=== PATIENT | female | born 1990 | race Hispanic/Latino ===

== ENCOUNTER 2018-07-27 14:09 | Observation (INO) | payer OTHER ==
[~2018-07-27] VITALS: Ht 162.6 cm; Wt 111.1 kg
[~2018-07-27 14:09] MED LIST: BIRTH CONTROL PO; LOESTRIN1 EAC1 PO
--- NOTE | 2018-07-27 14:17 | NUR ---
PATIENT ANXIOUS, SCREAMING AND CRYING,THRASHING IN BED. REQUESTING PAIN MEDCATION. NOTIFIED DR OLIVO. NO SIGNS OF ACUTE DISTRESS NOTED AT THIS TIME.
--- NOTE | 2018-07-27 14:19 | NUR ---
NOTIFIED DR OLIVO PATIENT VOMMITED APPROX 200ML YELLOW EMESIS. VERBAL ORDER: ZOFRAN 8MG IV ONCE
[2018-07-27] MEDS ORDERED: ONDANSETRON HCL INJ 2MG/ML 2ML 2 MG/ML VIAL ONE (14:22)
[2018-07-27] MEDS ORDERED: KETOROLAC TROMETHAMINE 30 MG/ML VIAL IV STA (14:30)
--- NOTE | 2018-07-27 14:32 | NUR ---
NOTIFIED DR OLIVO PATIENT REPORTS ALLERGY TO MOTRIN. D/C TORADOL ORDER. VERBAL ORDER: MORPHINE 4MG IV ONCE.
[2018-07-27] MEDS ORDERED: KETOROLAC TROMETHAMINE 30 MG/ML VIAL ONE (14:33)
[2018-07-27] MEDS ORDERED: SODIUM CHLORIDE 0.9% 1000ML 1,000 ML ONE (14:33)
[2018-07-27] MEDS ORDERED: MORPHINE SULFATE INJ 4 MG/ML INJ 1ML ONE (14:37)
[2018-07-27] MEDS ORDERED: SODIUM CHLORIDE 0.9% 1000ML 1,000 ML IV SCH (14:45)
[2018-07-27] MEDS ORDERED: MORPHINE SULFATE INJ 4 MG/ML INJ 1ML IV ONE (14:45)
[2018-07-27] MEDS ORDERED: ONDANSETRON HCL INJ 2MG/ML 2ML 2 MG/ML VIAL IV ONE (14:45)
--- NOTE | 2018-07-27 14:53 | NUR ---
PATIENT THRASHING IN BED AND CRYING, SCREAMING. REQUESTING MORE PAIN MEDICATION, NOTIFIED PATIENT AND FAMILY UNABLE TO GIVEN MORE PAIN MEDICATION AT THIS TIME, LAST DOSE AT 1437,VERBALIZED UNDERSTANDING. REDIRECTED ATTENTION,AND RE-EDUCATED PATIENT AND FAMILY ON THE CURRENT PLAN OF CARE,VERBALIZED UNDERSTANDING. PAIN 10/10 AFTER MORPHINE 4MG. RESP RAPID EVEN AND UNLABORED. SKIN PALE WARM AND DRY. NO SIGNS OF ACUTE DISTRESS NOTED DURING TRIAGE. NOTIFIED DR OLIVO.
--- NOTE | 2018-07-27 15:14 | NUR ---
PATIENT REPORTS PAIN NOW 5/10. RESP EVEN AND UNLABORED. SKIN WARM AND DRY. NO SIGNS OF ACUTE DISTRESS NOTED AT THIS TIME.
--- NOTE | 2018-07-27 15:45 | Diagnostic Imaging Report ---
EXAM: CT Abdomen and Pelvis WITHOUT contrast INDICATION: ^[id number] COMPARISON: None. TECHNIQUE: Abdomen and pelvis were scanned utilizing a multidetector helical scanner from the lung base to the pubic symphysis without administration of IV contrast. Absence of intravenous contrast decreases sensitivity for detection of focal lesions and vascular pathology. Coronal and sagittal reformations were obtained. Routine protocol was performed. IV CONTRAST: None. ORAL CONTRAST: None RADIATION DOSE: Total DLP: 807.0 mGy*cm Estimated effective dose: (DLP x 0.015 x size factor) mSv COMPLICATIONS: None FINDINGS: LINES and TUBES: None. LOWER THORAX: Unremarkable HEPATOBILIARY: No focal hepatic lesions. No biliary ductal dilation. GALLBLADDER: No radio-opaque stones or sludge. No wall thickening. SPLEEN: No splenomegaly. PANCREAS: No focal masses or ductal dilatation. ADRENALS: No adrenal nodules KIDNEYS/URETERS: No hydronephrosis. No cystic or solid mass lesions. 6 mm nonobstructing calcified stone in the upper pole of the right kidney on series 3, image 74. Additional tiny 1 mm calcified stone is noted on image 79. No calcified stones in the right ureter. There is mild pelviectasis and dilatation of the left ureter with associated 6 mm stone in the distal left ureter at the ureterovesical junction. No calcified stones in the left kidney. GI TRACT: No abnormal distention, wall thickening, or evidence of bowel obstruction. Appendix is normal. PELVIC ORGANS/BLADDER: Unremarkable. LYMPH NODES: No lymphadenopathy. VESSELS: Unremarkable. PERITONEUM / RETROPERITONEUM: No free air or fluid. BONES: Unremarkable. SOFT TISSUES: Unremarkable. IMPRESSION: 1. Mildly obstructing 6 mm left distal ureteral stone. 2. Nonobstructing right nephrolithiasis. Signed by: Dr. Pauly Mahajan M.D. on 07/27/2018 3:41 PM
[2018-07-27] MEDS ORDERED: HYDROMORPHONE 1MG/1ML INJ IV PRN (16:15)
--- NOTE | 2018-07-27 16:40 | NUR ---
NOTIFIED [facility] FOR PATIENT TRANSPORT VIA [facility]RETCHER FROM [facility] TO [facility], SPOKE WITH TRAVIS.
--- NOTE | 2018-07-27 17:45 | NUR ---
EDUCATED PATIENT AND FAMILY ON THE CURRENT PLAN OF CARE,AWAITING [facility] FOR TRANSPORT TO MAIN CAMPUS,VERBALIZED UNDERSTANDING. RESP EVEN AND UNLABORED.SKIN WARM AND DRY. NO SIGNS OF ACUTE DISTRESS NOTED AT THIS TIME. DENIES ANY C/O AT THIS TIME.
[2018-07-27] MEDS ORDERED: CEFTRIAXONE SOD 1 GM VIAL ONE (18:13)
--- NOTE | 2018-07-27 18:31 | NUR ---
TRANSPORTED TO [facility] VIA [facility]. NO SIGNS OF ACUTE DISTRESS NOTED AT THIS TIME.
[2018-07-27 18:40] VITALS: BP 97/54
[2018-07-27 19:19] VITALS: BP 97/54
[2018-07-27 19:21] VITALS: BP 97/54
[2018-07-27] MEDS: D5.45%NS/KCL 20MEQ 1,000 ML IV SCH (19:45)
--- NOTE | 2018-07-27 20:15 | NUR ---
Patient voided into the urine and through the filter catching small bits of possible stones. No blood in urine noted. patient experienced no pain during voiding. Continue to monitor patient for stone/pain
--- NOTE | 2018-07-27 21:34 | NUR ---
Performed comprehensive assessment on the patient. Patient is A/Ox4 with VS at [facility]. Rated her pain 2/10 around the left flank due to stone of the left ureter. Bed set low, wheels lock, side rails up x2 and call light within reach. Instructed patient will be NPO at midnight if no further stone has come out during void. Verbalized understanding. Monitor patient for pain/nausea.
[2018-07-28] VITALS (8 sets, daily range): BP systolic 89–120; BP diastolic 50–72
[2018-07-28] MEDS: D5.45%NS/KCL 20MEQ 1,000 ML IV SCH ×3 (04:38→20:49)
[2018-07-28 05:29] LABS: BASOPHILS % 0.4 % (0.0-1.0); EOSINOPHILS # (AUTO) 0.1 (0.0-0.4); HEMATOCRIT 35.7 % (34.2-44.1); LYMPHOCYTES # (AUTO) 3.1 (1.0-3.2); LYMPHOCYTES % 31.4 % (18.0-39.1); MEAN CORPUSCULAR HEMOGLOBIN 25.3 pg (28-32); MEAN CORPUSCULAR HGB CONC 30.8 g/dL (31-35); MEAN CORPUSCULAR VOLUME 82.1 fL (81-99); MONOCYTES # (AUTO) 0.6 (0.2-0.8); MONOCYTES % 6.2 % (4.4-11.3); NEUTROPHILS % 60.8 % (38.7-80.0); PLATELET COUNT 203 x10e3/uL (140-360); RED BLOOD COUNT 4.35 x10e6/uL (3.6-5.1); RED CELL DISTRIBUTION WIDTH 15.1 % (11.7-14.4)
[2018-07-28 05:54] LABS: ANION GAP 10.7 mmol/L (8-16); BLOOD UREA NITROGEN 6 mg/dL (7-26); BUN/CREATININE RATIO 8 (6-25); CALCIUM 8.3 mg/dL (8.4-10.2); CARBON DIOXIDE 26 mmol/L (22-29); CHLORIDE 106 mmol/L (98-107); CREATININE, SERUM 0.75 mg/dL (0.57-1.11); EST GLOMERULAR FILTRATION RATE > 60 ML/MIN (60-); GLUCOSE 95 mg/dL (74-118); POTASSIUM 3.7 mmol/L (3.5-5.1); SODIUM 139 mmol/L (136-145)
[2018-07-28] MEDS: TAMSULOSIN HCL 0.4 MG CAP PO SCH (08:43)
[2018-07-28] MEDS: ONDANSETRON HCL INJ 2MG/ML 2ML 2 MG/ML VIAL IV PRN ×2 (10:27→20:49)
[2018-07-28] MEDS ORDERED: HYDROMORPHONE 2MG/ML 2 MG/ML ML IV PRN (10:30)
[2018-07-28] MEDS ORDERED: PROMETHAZINE 25MG/ NS 50ML (IV) IV PRN (12:15)
[2018-07-28] MEDS ORDERED: PROMETHAZINE 25MG/ NS 50ML (IV) IV ONE (12:15)
--- NOTE | 2018-07-28 13:26 | History and Physical ---
CHIEF COMPLAINT: Left flank pain. HISTORY OF PRESENT ILLNESS: A 28-year-old woman, who presents to [facility] with intense left flank pain. The patient states that for 2 to 3 weeks she has been experiencing pain in her left lower back/flank area, but one day prior to admission and on day of admission, the pain became exquisitely intense. The patient said the pain radiated actually from her left flank area to her left lumbar abdominal and left lower quadrant abdominal area. The patient states the pain was associated with nausea, vomiting. The patient states she does have a history of recurrent kidney stones. The patient's last kidney stone was in August 2017. The patient states she has never undergone cystoscopy with ureteral stent placement. The patient states that she will take tamsulosin at home and pass kidney stone usually with no problem. On this admission, the patient underwent a CT of abdomen and pelvis without contrast that revealed a mildly nonobstructing 6 mm left distal ureteral stone as well as nonobstructing right nephrolithiasis. The patient was admitted for further evaluation and treatment. The patient had a white blood cell count of 9800 with 60% segmented neutrophils. The patient's hemoglobin was 11 g. The patient's BUN and creatinine were 6 and 0.75 with potassium 3.7. Urinalysis performed in the emergency room did not reveal any evidence of infection, but did reveal a large amount of blood. The patient was admitted for further evaluation and treatment. REVIEW OF SYSTEMS: GENERAL: Weight has been stable. No fever or chills. HEENT: No headaches. No vision changes. CARDIOVASCULAR/RESPIRATORY: No chest pain or cough. GI: Intense left flank pain starting one day prior to admission. : Denies any gross hematuria, but she has history of recurrent kidney stones. NEUROMUSCULAR: Intense left flank pain for last 2 to 3 weeks, but it became very intense one day prior to admission. HOME MEDICATIONS: None. ALLERGIES: 1. ASPIRIN. 2. IBUPROFEN. 3. NAPROXEN. FAMILY HISTORY: Multiple members with kidney stones. SOCIAL HISTORY: She is , lives with . She is a homemaker. She takes care of her two small twin children. No history of tobacco or alcohol use. PAST SURGICAL HISTORY: section once. PAST MEDICAL HISTORY: 1. Recurrent kidney stones (last kidney stones August 2017). 2. Extreme obesity. PHYSICAL EXAMINATION: GENERAL: She is awake, alert and fluent. She is in obvious distress. She is retching at this time. Her is at bedside. VITAL SIGNS: Height 5 feet 4 inches, weight 245 pounds, BMI 42. Blood pressure is 120/70, pulse 62, respiratory rate 18, oxygen 98%. Her temp is 97.3. INTEGUMENT: Skin is warm and dry. No pallor, jaundice, or diaphoresis. HEENT: Anicteric sclerae. Dry mucous membranes. NECK: Supple. CARDIOVASCULAR: Regular rate and rhythm. LUNGS: No rales. No rhonchi. ABDOMEN: Obese, benign. SPINE/TORSO: Has exquisite tenderness when palpating the left flank/costovertebral angle area. EXTREMITIES: No edema or deformity. NEUROLOGIC: Intact. DIAGNOSES: 1. Left obstructing ureteral stone (6 mm). 2. History of recurrent kidney stones. 3. Extreme obesity, BMI 42. PLAN: 1. Appreciate Urology's input. 2. Tentative surgical intervention tomorrow morning. 3. Nothing by mouth after midnight. 4. Clear liquids. 5. Analgesics. 6. Antiemetics. 7. Follow electrolytes and renal function. I spent 30 minutes in care of this patient. MD DEMARIO Roldan/WOO /[id number] MTDD
--- NOTE | 2018-07-28 18:47 | Consultation ---
DATE OF CONSULTATION: 07/28/2018 Urology Consultation Consultation called by the emergency room. CHIEF COMPLAINT AND REASON FOR CONSULTATION: kidney stones. Ureteral calculus. HISTORY OF PRESENT ILLNESS: Mrs. Mcdaniel is a 28-year-old female admitted to the hospital for sharp severe left-sided flank pain, 10/10, not relieved by anything. She has a kidney stones before and states this is definite like kidney stones. She denies any fevers. No chills. No nausea. No vomiting. PAST MEDICAL HISTORY: Notable for , kidney stones. MEDICATIONS: Please see MAR. ALLERGIES: NSAIDS AND ASPIRIN. SOCIAL HISTORY: Denied smoking or drinking. FAMILY HISTORY: Denied urologic stones or malignancies. REVIEW OF SYSTEMS: Noncontributory other than problems mentioned above for 12 organ systems PHYSICAL EXAMINATION: GENERAL: Middle-aged female, in no acute distress currently. VITAL SIGNS: Temperature 98.2, pulse 100, respirations 20, blood pressure 109/66, weight 244 pounds. HEENT: Sclerae anicteric. NECK: Supple. BACK: Without costovertebral angle. ABDOMEN: Soft, nontender, and nondistended. No palpable mass. No palpable hernias. No palpable lymphadenopathy. : Normal female genitalia. EXTREMITIES: No edema. PSYCH: Alert. Mood appropriate. SKIN: Intact, normal color. PERTINENT LABORATORY DATA: CT scan revealing a 6 mm right upper pole kidney stone, 6 mm left UVJ stone with hydronephrosis. Hemoglobin 11, hematocrit 35, platelet count 203,000, white cell count 5800. Sodium 145, potassium 3.3, chloride 105, bicarb 27, BUN 7, creatinine 1.0, glucose 101. Urine hCG negative. Urinalysis; positive ketones, positive blood, positive protein, negative nitrites, and negative leukocytes. IMPRESSION: 1. Left ureteral calculus. 2. Left hydronephrosis. 3. Left renal calculus. 4. Microscopic hematuria. 5. Right kidney stones. 6. Hypokalemia. 7. Obesity. PLAN: Employ a brief trial of passage. Should this fail, the patient will need stenting versus ureteroscopy, laser lithotripsy. Thank you for allowing me to participate in the care of your patient. We will be happy to follow along with you. MD HERI Castorena/MODL /[id number] cc: Dennis Zapien MD
--- NOTE | 2018-07-28 19:20 | NUR ---
WALKING ROUNDS PERFORMED. RECEIVED PT LAYING IN BED, AAOX3, RR EVEN AND NON-LABORED, ON RA. NO S/SX OF DISTRESS NOTED. CALL LIGHT WITHIN REACH. INSTRUCT TO CALL FOR ASSISTANCE. FAMILY AT SIDE. BED LOW/LOCKED. CONTINUE TO MONITOR CLOSELY
--- NOTE | 2018-07-28 19:46 | NUR ---
report given to oncoming nurse, pt stable.
[2018-07-28] MEDS: MORPHINE SULFATE INJ 4 MG/ML INJ 1ML IV PRN (20:49)
[2018-07-29] VITALS (7 sets, daily range): BP systolic 95–106; BP diastolic 56–67
[2018-07-29] MEDS ORDERED: IOPAMIDOL 610MG/1ML 300 MG/ML VIAL IV ONE (05:55)
[2018-07-29 06:18] LABS: BASOPHILS % 0.5 % (0.0-1.0); EOSINOPHILS # (AUTO) 0.1 (0.0-0.4); EOSINOPHILS % 1.6 % (0.0-6.0); HEMOGLOBIN 11.2 g/dL (12.0-16.0); LYMPHOCYTES # (AUTO) 2.5 (1.0-3.2); MEAN CORPUSCULAR HEMOGLOBIN 25.1 pg (28-32); MEAN CORPUSCULAR HGB CONC 30.3 g/dL (31-35); MONOCYTES # (AUTO) 0.7 (0.2-0.8); MONOCYTES % 8.5 % (4.4-11.3); NEUTROPHILS # (AUTO) 4.9 (2.1-6.9); PLATELET COUNT 206 x10e3/uL (140-360); RED BLOOD COUNT 4.46 x10e6/uL (3.6-5.1); RED CELL DISTRIBUTION WIDTH 15.1 % (11.7-14.4)
--- NOTE | 2018-07-29 06:19 | NUR ---
PATIENT LEFT UNIT TO OR FOR SX. VITAL SIGN STABLE AT THIS TIME
[2018-07-29 06:43] LABS: ALANINE AMINOTRANSFERASE 35 IU/L (0-55); ALBUMIN 3.3 g/dL (3.5-5.0); ALBUMIN/GLOBULIN RATIO 1.2 (0.8-2.0); ALKALINE PHOSPHATASE 82 IU/L (40-150); ANION GAP 8.8 mmol/L (8-16); BLOOD UREA NITROGEN < 5 mg/dL (7-26); BUN/CREATININE RATIO 6 (6-25); CALCIUM 8.5 mg/dL (8.4-10.2); CARBON DIOXIDE 29 mmol/L (22-29); CHLORIDE 105 mmol/L (98-107); CREATININE, SERUM 0.77 mg/dL (0.57-1.11); EST GLOMERULAR FILTRATION RATE > 60 ML/MIN (60-); GLUCOSE 87 mg/dL (74-118); POTASSIUM 3.8 mmol/L (3.5-5.1); SODIUM 139 mmol/L (136-145)
--- NOTE | 2018-07-29 07:15 | NUR ---
received report from deidra in pacu. awaiting for pt to arrive to floor md flores states pt can dc home after orahood is ok with his going
--- NOTE | 2018-07-29 07:41 | NUR ---
PT BACK FROM PACU AA0X3. C/O SEVERE PAIN TO ANTERIOR LEFT PELVIC AREA 10/10 PRN MORPHINE WILL BE GIVEN FOR COMFORT IS AT BEDSIDE PT HAS A RIGHT AC 20 G WITH LR RUNNING. SITE IS CLEAN AND DRY WILL CONTINUE TO MONITOR CLOSELY SIDE RAILSX2, BED WHEELS LOCKED, CALL LIGHT IS WITHIN EASY REACH, INSTRUCTED TO CALL FOR ASSISTANCE IF NEEDED
[2018-07-29] MEDS: TAMSULOSIN HCL 0.4 MG CAP PO SCH (07:53)
[2018-07-29] MEDS: MORPHINE SULFATE INJ 4 MG/ML INJ 1ML IV PRN (07:55)
[2018-07-29] MEDS: ONDANSETRON HCL INJ 2MG/ML 2ML 2 MG/ML VIAL IV PRN (07:55)
[2018-07-29] MEDS ORDERED: MORPHINE SULFATE 2 MG/ML SYR 1ML IV STA (08:56)
[2018-07-29] MEDS: BELLADONNA/OPIUM 30 MG SUPP RC PRN (09:09)
--- NOTE | 2018-07-29 09:10 | NUR ---
CALLED MD WESTBROOK REGARDING PT SEVERE PAIN UNRELIEVED WITH MORPHINE NO ORDERS RECEIVED CALLED ATTENDING ABRIL. ORDERS RECEIVED FOR PAIN MANAGEMENT
[2018-07-29] MEDS ORDERED: MORPHINE SULFATE INJ 4 MG/ML INJ 1ML IV PRN (09:15)
[2018-07-29] MEDS ORDERED: MORPHINE SULFATE INJ 4 MG/ML INJ 1ML IV SCH (09:15)
[2018-07-29] MEDS: D5.45%NS/KCL 20MEQ 1,000 ML IV SCH ×2 (09:22→19:15)
[2018-07-29] MEDS ORDERED: PROMETHAZINE 25MG/ NS 50ML (IV) IV PRN (09:30)
[2018-07-29] MEDS: PHENAZOPYRIDINE HCL 100 MG TAB PO SCH ×2 (11:11→17:31)
[2018-07-29] MEDS: SENNA-S TABLET PO SCH ×2 (11:34→17:00)
--- NOTE | 2018-07-29 11:45 | NUR ---
PT STATES PT IS TOLERABLE AT THIS TIME 08/28 WILL CONTINUE TO MONITOR
[2018-07-29] MEDS ORDERED: ONDANSETRON HCL 4 MG ORAL DISINTEGRATING TAB PO PRN (12:00)
[2018-07-29] MEDS ORDERED: MIDAZOLAM HCL 2 MG/2 ML VIAL ONE (16:50)
[2018-07-29] MEDS ORDERED: FENTANYL CITRATE/PF 100MCG/2 ML INJ ONE (16:50)
[2018-07-29] MEDS ORDERED: SEVOFLURANE INHAL SOLN 250 ML PEN BTL ONE (19:24)
[2018-07-29] MEDS ORDERED: PROPOFOL IV EMULSION 10 MG/ML 20 ML VIAL ONE (19:24)
[2018-07-29] MEDS ORDERED: ONDANSETRON HCL INJ 2MG/ML 2ML 2 MG/ML VIAL ONE (19:24)
[2018-07-29] MEDS ORDERED: LIDOCAINE HCL 2% LOCAL INJ 5 ML SDV VIAL INJ ONE (19:24)
[2018-07-29] MEDS ORDERED: DEXAMETHASONE SOD PHOS INJ 4 MG/ML VIAL ONE (19:24)
[2018-07-30] VITALS: BP 97/62
--- NOTE | 2018-07-30 00:35 | NUR ---
IV TO RIGHT FA NOTED LEAKING AND PT C/O TENDERNESS TO SITE,CATH TIP NOTED INTACT UP ON REMOVAL.DRESSING APPLIED.PT RESTING IN BED WITH NO S/S OF DISTRESS.CALL LIGHT WITHIN EASY REACH.
[2018-07-30 04:00] VITALS: BP 98/60
[2018-07-30] MEDS: D5.45%NS/KCL 20MEQ 1,000 ML IV SCH (04:15)
[2018-07-30 05:53] LABS: BASOPHILS % 0.3 % (0.0-1.0); EOSINOPHILS % 0.1 % (0.0-6.0); HEMATOCRIT 37.5 % (34.2-44.1); HEMOGLOBIN 11.5 g/dL (12.0-16.0); LYMPHOCYTES # (AUTO) 2.8 (1.0-3.2); LYMPHOCYTES % 22.2 % (18.0-39.1); MEAN CORPUSCULAR HEMOGLOBIN 25.3 pg (28-32); MEAN CORPUSCULAR HGB CONC 30.7 g/dL (31-35); MEAN CORPUSCULAR VOLUME 82.6 fL (81-99); MONOCYTES # (AUTO) 0.9 (0.2-0.8); MONOCYTES % 6.7 % (4.4-11.3); NEUTROPHILS % 70.1 % (38.7-80.0); PLATELET COUNT 231 x10e3/uL (140-360); RED BLOOD COUNT 4.54 x10e6/uL (3.6-5.1)
[2018-07-30 06:14] LABS: ANION GAP 9.7 mmol/L (8-16); BLOOD UREA NITROGEN 5 mg/dL (7-26); BUN/CREATININE RATIO 7 (6-25); CALCIUM 9.1 mg/dL (8.4-10.2); CARBON DIOXIDE 27 mmol/L (22-29); CHLORIDE 104 mmol/L (98-107); CREATININE, SERUM 0.73 mg/dL (0.57-1.11); EST GLOMERULAR FILTRATION RATE > 60 ML/MIN (60-); GLUCOSE 92 mg/dL (74-118); POTASSIUM 3.7 mmol/L (3.5-5.1); SODIUM 137 mmol/L (136-145)
--- NOTE | 2018-07-30 07:04 | NUR ---
REPORT GIVEN TO ONCOMING NURSE.WALKING ROUNDS MADE.PT RESTING IN BED WITH NO S/S OF DISTRESS.
--- NOTE | 2018-07-30 07:05 | NUR ---
PT RESTING IN BED AA0X3. MOM IS AT BEDSIDE PT IS IN NO S.S OF DISTRESS STATES PAIN TO LEFT SIDE IS CONTROLLED AT A 1/10 PT HAS IV FLUIDS RUNNING TO THE LEFT WRIST 20G , SITE IS CLEAN AND DRY WILL CONTINUE TO MONITOR PT CLOSELY, SIDE RAILSX2, BED WHEELS LOCKED, CALL LIGHT IS WITHIN EASY REACH, INSTRUCTED TO CALL FOR ASSISTANCE IF NEEDED
[2018-07-30 07:59] VITALS: BP 92/58
[2018-07-30 08:30] VITALS: BP 122/85
[2018-07-30 08:36] VITALS: BP 122/85
[2018-07-30] MEDS: PHENAZOPYRIDINE HCL 100 MG TAB PO SCH (08:36)
[2018-07-30] MEDS: TAMSULOSIN HCL 0.4 MG CAP PO SCH (08:36)
[2018-07-30] MEDS: SENNA-S TABLET PO SCH (08:36)
[2018-07-30] MEDS: BELLADONNA/OPIUM 30 MG SUPP RC PRN (09:37)
[2018-07-30] MEDS ORDERED: CEFTRIAXONE SOD 1 GM/NS 50 ML 50 ML IV ONE (10:15)
[2018-07-30] MEDS ORDERED: PROMETHAZINE HC25 M1 PO (10:50)
[2018-07-30] MEDS ORDERED: CEFUROXIME250 MG PO (10:51)
[2018-07-30] MEDS ORDERED: TYLENOL WITH C1 EACH PO (10:51)
--- NOTE | 2018-07-30 11:00 | NUR ---
dc instructions and prescriptions given. pt verbalized understanding iv dc pressure dressing applied and tapped pt is now waiting for ride home
--- NOTE | 2018-07-30 11:05 | Discharge Summary ---
ADMITTING DIAGNOSES: 1. Obstructive left ureteral stone with no hydronephrosis. 2. History of recurrent kidney stones. 3. Extreme obesity, BMI 42. DISCHARGE DIAGNOSES: 1. Status post cystoscopy with left stone lasering and extraction. 2. Status post left ureteral stent placement and inadvertent decannulation. 3. Extreme obesity, BMI of 42. 4. History of recurrent kidney stones. HOSPITAL COURSE: This is a 28-year-old woman with known history of recurrent kidney stones and extreme obesity. She was admitted to [facility] with diagnosis of obstructive left ureteral stone measuring [address] of the abdomen and pelvis. No obvious hydronephrosis or hydroureter was appreciated. The patient was admitted to my service and Urology was consulted, namely Dr. Ramirez. The patient underwent cystoscopy with stone lasering and extraction. This procedure was successful. Also during the surgical procedure, a left ureteral stent was placed. However, within few hours it was inadvertently decannulated by the patient. The patient's hospitalization was unremarkable. She did stay one extra day for pain control. The patient necessitated intravenous morphine as well as belladonna and opium suppositories for pain control. She also received intravenous promethazine as well as ondansetron for her nausea and vomiting. On the day of discharge, she was tolerating a regular diet and pain was well controlled. CONDITION AT DISCHARGE: Stable. DISCHARGE MEDICATIONS: 1. Tylenol No. 3 one pill every 4 hours p.r.n. pain, #30 prescribed, no refills. 2. Ceftin 250 mg one pill by mouth twice a day for 7 days. 3. Phenergan 25 mg one every 6 hours p.r.n. pain, 12 prescribed with one refill. FOLLOWUP INSTRUCTIONS: The patient instructed to follow up with her urologist, namely Dr. Ramirez within 7 to 10 days and she is instructed to follow up with primary care physician at [facility] within 2 weeks. MD DEMARIO Roldan/WOO /[id number] cc: Nader Ramirez MD [facility]
[2018-07-30 12:48] VITALS: BP 99/67
--- NOTE | 2018-07-30 13:15 | NUR ---
pt off unit to home via wheel chair
--- NOTE | 2018-07-31 15:10 | Operative Report ---
DATE OF PROCEDURE: 07/29/2018 SURGEON: Nader Ramirez MD PREOPERATIVE DIAGNOSES: 1. Microscopic hematuria. 2. Left ureteral calculi. 3. Left hydronephrosis. POSTOPERATIVE DIAGNOSES: 1. Microscopic hematuria. 2. Left ureteral calculi. 3. Left hydronephrosis. PROCEDURES: 1. Cystourethroscopy with right ureteral catheterization and right retrograde pyelogram (separate procedure for microscopic hematuria). 2. Left-sided ureteroscopy, laser lithotripsy (entirely separate procedure for left ureteral calculi). 3. Left-sided ureteroscopy with stone extraction (entirely separate procedure for exclusive purpose of sending stones for analysis, not required for laser lithotripsy). 4. Supervision of fluoroscopy for ureteroscopic portion. 5. Supervision of fluoroscopy for stent placement portion and retrograde pyelograms. 6. Cystourethroscopy with insertion of left indwelling stent. 7. Interpretation of retrograde pyelography. ANESTHESIA: General. ESTIMATED BLOOD LOSS: Minimal. COMPLICATIONS: None. INDICATIONS FOR PROCEDURE: Mrs. Mcdaniel is a 28-year-old female with failure of passage of a 6 mm distal ureter calculus. She and I had a long discussion about alternatives, risks, and benefits of doing nothing, ureteroscopy, percutaneous surgery or open surgery. She voiced understanding of the options, of the alternatives, of the risks and the benefits, and elected to proceed. PROCEDURE IN DETAIL: After informed consent was obtained, the patient was taken to the operating suite. She was placed supine on the operating table. She underwent general anesthesia by Anesthesia service. She was placed in the dorsal lithotomy position and sterilely prepped and draped in standard fashion for cystoscopy. A 21-Ugandan cystoscope was inserted per urethra. Normal urethra was noted. Panendoscopy of the bladder revealed no tumors and no stones. Both ureteral orifices were in normal anatomic location, only the right was seen to efflux urine. Right retrograde pyelogram was performed which was normal. The left revealed distal ureteral filling defect. The ureter was dilated. A guidewire was inserted. Ureteroscope was driven to level offending stone. Utilizing 365 micron laser fiber, the stone was broken into multiple small fragments, several of which were basket extracted and passed off the table as specimens. At this time, ureteroscope was advanced proximally. Retrograde pyelogram was performed again through ureteroscope revealing no other stones. A ureteral stent was then deployed with a coil in the renal pelvis and a coil in the bladder. The bladder was drained. The patient was awakened from anesthesia and transferred to the recovery room in excellent condition Supervision of fluoroscopy and interpretation of retrograde pyelography: I was present for the entire procedure and supervised fluoroscopy. There was no radiologist present at any time during this procedure. Attention was turned toward the left and right ureters, which were catheterized and retrograde pyelogram was performed revealing a left ureteral calculus, proximal hydronephrosis. Postoperative views revealed left ureteral stent in adequate position. Addendum: In the PACU, it was evident that the stent with the string left had been partially removed as the distal end of the stent was hanging out the urethra. In the PACU, the entire stent was removed intact, visualized by myself in the PACU. The patient tolerated the procedure well with no untoward events noted. MD HERI Castorena/WOO /[id number]
== END 2018-07-30 13:03 | disposition home or self-care (01) ==
LOC: FSED 14:09 → ERHOLD 17:25 → IMCU 18:45 → MED/SURG 07-28 14:54
PROVIDERS: ADMIT Internal Medicine; ATTEND Internal Medicine
DX: N13.2 Hydronephrosis with renal and ureteral calculous obstruction (principal); E66.01 Morbid (severe) obesity due to excess calories; Z68.41 Body mass index [BMI] 40.0-44.9, adult; R31.29 Other microscopic hematuria; E87.6 Hypokalemia; Z87.442 Personal history of urinary calculi; Z88.6 Allergy status to analgesic agent; Z88.8 Allergy status to other drugs, medicaments and biological substances; Z84.1 Family history of disorders of kidney and ureter; J45.909 Unspecified asthma, uncomplicated; K21.9 Gastro-esophageal reflux disease without esophagitis
CPT/HCPCS: 36415 ×3; 52356; 74176; 74420; 80048 ×3; 80053; 81003; 81025; 85025 ×4; 88300; 99284; C2617; G0378 ×4; J0696 ×2; J1100; J1170 ×2; J1885; J2001; J2250; J2270 ×3; J2405 ×2; J2550 ×2; J2704; J7030; Q0162; Q9967

== ENCOUNTER 2020-09-29 09:11 | Emergency (ER) | payer OTHER ==
[~2020-09-29] VITALS: Ht 162.6 cm; Wt 115.8 kg
[~2020-09-29 09:11] MED LIST changes: +CEFUROXIME250 MG PO; +PROMETHAZINE HC25 M1 PO; +TYLENOL WITH C1 EACH PO
[2020-09-29] MEDS ORDERED: SERTRALINE HCL50 MG PO (09:29)
[2020-09-29] MEDS ORDERED: ATORVASTATIN CA20 MG PO (09:29)
[2020-09-29] MEDS ORDERED: SODIUM CHLORIDE 0.9% 1000ML 1,000 ML IV STA (09:33)
[2020-09-29] MEDS ORDERED: ONDANSETRON HCL INJ 2MG/ML 2ML 2 MG/ML VIAL IV STA (09:33)
[2020-09-29] MEDS ORDERED: SODIUM CHLORIDE 0.9% 1000ML 1,000 ML ONE (09:50)
[2020-09-29] MEDS ORDERED: POTASSIUM CHLORIDE 20 MEQ TAB CR PO STA (10:18)
[2020-09-29] MEDS ORDERED: PROMETHAZINE HCL (IM) 25 MG/ML VIAL IM ONE (10:30)
[2020-09-29] MEDS ORDERED: POTASSIUM CHLORIDE 20 MEQ TAB CR PO ONE (10:33)
[2020-09-29] MEDS ORDERED: SODIUM CHLORIDE 0.9% 50ML 50 ML ONE ×2 (10:35→12:22)
[2020-09-29] MEDS ORDERED: IOPAMIDOL 370 MG/ML 200 ML INFUS..BTL INJ ONE (12:22)
[2020-09-29] MEDS ORDERED: ONDANSETRON ODT4 MG PO (12:32)
== END 2020-09-29 12:48 | disposition home or self-care (01) ==
LOC: FSED 09:28
DX: R42 Dizziness and giddiness (principal); H53.8 Other visual disturbances; R51.9 Headache, unspecified
CPT/HCPCS: 70470; 80053; 81003; 81025; 82553; 84484; 85025; 96374; 99284; J2405; J2550; J7030; Q9967

== ENCOUNTER 2022-04-26 16:28 | Emergency (ER) | payer BC, OTHER ==
[~2022-04-26] VITALS: Ht 162.6 cm; Wt 115.7 kg
[~2022-04-26 16:28] MED LIST changes: +ATORVASTATIN CA20 MG PO; +ONDANSETRON ODT4 MG PO; +SERTRALINE HCL50 MG PO
[2022-04-26] MEDS ORDERED: FAMOTIDINE 20 MG TAB PO ONE (16:45)
== END 2022-04-26 16:53 | disposition home or self-care (01) ==
LOC: ER 16:35
DX: T78.40XA Allergy, unspecified, initial encounter (principal); E78.5 Hyperlipidemia, unspecified; F32.A Depression, unspecified; Z87.442 Personal history of urinary calculi
CPT/HCPCS: 99282